=== PATIENT | male | born 1940 | race Caucasian/White ===

== ENCOUNTER 2019-03-30 16:56 | Inpatient (IN) | payer OTHER, BC ==
[2019-03-30 17:19] VITALS: BMI 24.4
--- NOTE | 2019-03-30 17:55 | PDOC ---
History of Present Illness - General Chief Complaint: Injury Stated Complaint: FALL Time Seen by Provider: 03/30/19 17:20 History Source: Patient, Spouse Exam Limitations: No Limitations - History of Present Illness Initial Comments: 03/30/19 18:14 PCP: Dr. Lee in [place] HPI: 78yo man with PMH Alzheimer disease, emphysema, PAD (s/p b/l surgeries), [place] (30 years), presenting s/p unwitnessed mechanical fall from standing 30 minutes [employer]. Pt was walking along the sidewalk and reports that he tripped over his shoes - something that has been occuring recently - and fell to the ground striking his head, and left shoulder. He reports that he remembers the fall and a passerby called 911 and he was brought to the ED. Pt told EMS that he felt / heard a clicking in his neck and was placed in a C-collar. He is on 81mg ASA nightly Denies aura or other preceding symptoms. No CP, SOB, palpitations, fevers, chills, dizziness, nausea, vomiting. All: Amoxicillin, potassium clavulanate Past History - Travel Traveled outside of the country in the last 30 days: No Close contact w/someone who was outside of country & ill: No - Past Medical History Allergies/Adverse Reactions: Allergies Allergy/AdvReac Type Severity Reaction Status Date / Time amoxicillin trihydrate Allergy Verified 03/30/19 20:46 [From Augmentin] potassium clavulanate Allergy Verified 03/30/19 20:46 [From Augmentin] Home Medications: Ambulatory Orders Aspirin 81 mg PO DAILY 03/30/19 Carvedilol [Coreg -] 3.125 mg PO BID 03/30/19 Losartan/Hydrochlorothiazide [Losartan-Hctz 50-12.5 mg Tab] 1 each PO DAILY Cancer: Yes ([place]) COPD: No HTN: Yes - Surgical History Cardiac Surgery: Yes (stent) - Suicide/Smoking/Psychosocial Hx Smoking Status: No Smoking History: Former smoker Have you smoked in the past 12 months: No Number of Cigarettes Smoked Daily: 0 Information on smoking cessation initiated: No Hx Alcohol Use: No Drug/Substance Use Hx: No Review of Systems - Review of Systems Able to Perform ROS?: Yes Is the patient limited Algerian proficient: No Constitutional: No: Symptoms Reported, Chills, Fever, Weakness HEENTM: No: Symptoms Reported Respiratory: No: Symptoms reported, Cough, Stridor, Wheezing Cardiac (ROS): No: Symptoms Reported, Chest Pain, Irregular Heart Rate, Lightheadedness, Palpitations, Syncope, Chest Tightness ABD/GI: No: Symptoms Reported Musculoskeletal: Yes: Symptoms Reported Integumentary: No: Symptoms Reported Neurological: No: Symptoms reported, Headache, Numbness, Tingling, Dizziness All Other Systems: Reviewed and Negative *Physical Exam - Vital Signs Last Vital Signs Temp Pulse Resp BP Pulse Ox 98.3 F 76 18 159/103 H 93 L 03/30/19 17:15 03/30/19 17:15 03/30/19 17:15 03/30/19 17:15 03/30/19 17:15 - Physical Exam Comments: 03/30/19 18:22 Vitals: reviewed Gen: elderly man, sitting up, in C-collar, bilateral knee excoriations CV: RRR, nl s1/s2, no murmurs appreciated Pulm: CTABL, normal WOB, symmetric chest expansion Abd: soft, nontender, nondistended Ext: warm and well perfused, no clubbing / cyanosis / edema Skin: bilateral excoriation on knees, less than 2 inches each, 15-20 ants on right knee Msk: TTP left wrist, left humorous, left shoulder, no gross deformity apparent ED Treatment Course - LABORATORY CBC & Chemistry Diagram: 04/01/19 05:47 04/01/19 05:47 Medical Decision Making - Medical Decision Making 03/30/19 18:27 78yo man with PMH Alzheimer disease, emphysema, PAD (s/p b/l surgeries), [place] (30 years), presenting s/p unwitnessed likely mechanical fall from standing 30 minutes [employer]. Imaging to r/o head bleed, fractures. Labs for r/o syncope in man with h/o [place], unwitnessed fall. - CBC, CMP, Cardiac Profile, T&S, PT/INR - EKG, CXR - Left wrist, humorous, shoulder, hip and pelvisn Xrays - NCHCT, C-spine - 1g acetaminophen IV for pain - Legs dressed with bacitracin 03/30/19 19:02 Pt signed out to Dr. Suarez *DC/Admit/Observation/Transfer Diagnosis at time of Disposition: Pre-syncope Left humeral fracture Qualifiers: Encounter type: initial encounter Humerus Location: proximal Fracture type: closed Fracture morphology: other fracture Fracture alignment: displaced Qualified Code(s): S42.292A - Other displaced fracture of upper end of left humerus, initial encounter for closed fracture - Discharge Dispostion Condition at time of disposition: Stable - Referrals - Patient Instructions - Post Discharge Activity
[2019-03-30] MEDS ORDERED: ACETAMINOPHEN 1000 MG/100 ML VIAL (NON FORMULARY) IVPB ONE (18:11)
[2019-03-30] MEDS ORDERED: DIPHTH,PERTUSS(ACELL),TET 0.5 ML DISP.SYRIN IM ONE ×2 (18:25→18:36)
[2019-03-30] MEDS ORDERED: BACITRACIN 15 GM TUBE TOPICAL OINTMENT TP ONE (18:33)
[2019-03-30] MEDS ORDERED: ACETAMINOPHEN INJECTION 100 ML IVPB ONE (18:36)
[2019-03-30] MEDS ORDERED: BACITRACIN 0.9 GM PACKET ONE (18:36)
[2019-03-30 18:41] LABS: BASO % 0.5 % (0-2.0); EOS % 2.3 % (0-4.5); HEMATOCRIT 38.4 % (35.4-49); HEMOGLOBIN 13.3 GM/dL (11.7-16.9); LYMPH % 8.3 % (8-40); MCH 30.2 pg (25.7-33.7); MCHC 34.6 g/dl (32.0-35.9); MEAN CELL VOLUME 87.2 fl (80-96); MEAN PLT VOLUME 7.9 fl (7.5-11.1); MONO % 7.7 % (3.8-10.2); NEUT % 81.2 % (42.8-82.8); PLATELET COUNT 137 K/MM3 (134-434); RBC 4.41 M/mm3 (4.00-5.60); RDW 12.7 % (11.9-15.9); WHITE BLOOD COUNT 5.9 K/mm3 (4.0-10.0)
[2019-03-30 18:53] LABS: INR 1.08 (0.83-1.09); PROTHROMBIN TIME (PATIENT) 12.8 SEC (9.7-13.0)
[2019-03-30 19:00] LABS: ALBUMIN 3.9 g/dl (3.4-5.0); BILIRUBIN,TOTAL 0.4 mg/dL (0.2-1); BLOOD UREA NITROGEN 19.6 mg/dL (7-18); CALCIUM 8.5 mg/dL (8.5-10.1); CREATININE 0.9 mg/dL (0.55-1.3); POTASSIUM 4.1 mmol/L (3.5-5.1); TOT PROT 7.1 g/dl (6.4-8.2)
--- NOTE | 2019-03-30 19:17 | PDOC ---
Documentation entered by Darron Valdez SCRIBE, acting as scribe for Lisa Barber MD. Lisa Barber MD: This documentation has been prepared by the José Miguel medrano Elijah, SCRIBE, under my direction and personally reviewed by me in its entirety. I confirm that the documentation accurately reflects all work, treatment, procedures, and medical decision making performed by me. Attending Attestation - Resident Resident Name: Titus Smith - ED Attending Attestation I have performed the following: I have examined & evaluated the patient, The case was reviewed & discussed with the resident, I agree w/resident's findings & plan - HPI HPI: 03/30/19 18:23 78 yo M with PMH of Alzheimers, Cancer (ND) and HTN who presents to the ED via EMS s/p unwitnessed fall. Patient reports that he was walking when his shoe got caught on the curb resulting in him falling, hitting both knees and left side of the body. At this time the patient reports having pain in his left arm. Allergies: Amoxicillin Trihydrate, Potassium Clavulanate PCP: - Physicial Exam PE: 03/30/19 19:13 awake alert head atraumatic , no cervical spine tenderness, lungs clear bilat heart rrr no mrg abd soft nt nd ext wwp. bilat knee abrasions hips/ knee/ ankle from nt. left shoulder pain with abduction to 90deg, elbow from. left wrist TTP , no snuff box tenderness. pain on flex/ ext. nuero speech clear, moves all four ext. - Medical Decision Making 03/30/19 19:15 78 yo male s/p fall unwitnessed, unclear event.e c/o left shoulder pain, wrist pain, bilat knee abrasions. brought in c collar. plan ct head cervical spine, cxr ekg, troponin. xray wrist, shoulder and pelvis / left hip. tetanus. will likely require observation for pain control and syncope. ct head/ cervical spine pending. xray pending. pt signed out to oncomint attenidng DR Young, awaiting test results
--- NOTE | 2019-03-30 19:32 | PDOC ---
*Physical Exam - Vital Signs Last Vital Signs Temp Pulse Resp BP Pulse Ox 98.3 F 76 18 159/103 H 93 L 03/30/19 17:15 03/30/19 17:15 03/30/19 17:15 03/30/19 17:15 03/30/19 17:15 - Physical Exam Comments: 03/30/19 19:48 Gen: elderly man, sitting up, in C-collar, anxious, bilateral knee excoriations CV: RRR, nl s1/s2, no murmurs appreciated Pulm: CTABL, normal WOB, symmetric chest expansion Abd: soft, nontender, nondistended Ext: warm and well perfused, no clubbing / cyanosis / edema Skin: bilateral excoriation on knees, less than 2 inches each, 15-20 ants on right knee Msk: TTP left wrist, left humorous, left shoulder, no gross deformity apparent ED Treatment Course - LABORATORY CBC & Chemistry Diagram: 03/30/19 18:20 03/30/19 18:20 - ADDITIONAL ORDERS Additional order review: Laboratory Results 03/30/19 03/30/19 03/30/19 18:20 18:20 18:20 PT with INR 12.80 INR 1.08 Sodium 138 Potassium 4.1 Chloride 101 Carbon Dioxide 32 Anion Gap 5 L BUN 19.6 H Creatinine 0.9 Est GFR (CKD-EPI)AfAm 94.48 Est GFR (CKD-EPI)NonAf 81.52 Random Glucose 104 Calcium 8.5 Total Bilirubin 0.4 AST 13 L ALT 18 Alkaline Phosphatase 55 Creatine Kinase 100 Troponin I < 0.02 Total Protein 7.1 Albumin 3.9 03/30/19 18:20 RBC 4.41 MCV 87.2 MCHC 34.6 RDW 12.7 MPV 7.9 Neutrophils % 81.2 Lymphocytes % 8.3 D Monocytes % 7.7 Eosinophils % 2.3 Basophils % 0.5 - Medications Given in the ED: ED Medications Discontinued Medications Generic Name Dose Route Start Last Admin Trade Name Freq PRN Reason Stop Dose Admin Acetaminophen 1,000 mg 03/30/19 18:11 03/30/19 18:38 Ofirmev Injection - IVPB 03/30/19 18:12 1,000 mg ONCE ONE Administration Bacitracin 1 applic 03/30/19 18:33 03/30/19 18:39 Bacitracin - TP 03/30/19 18:34 1 applic ONCE ONE Administration Diphtheria/Tetanus/Acell Pertussis 0.5 ml 03/30/19 18:25 03/30/19 18:38 Boostrix - IM 03/30/19 18:26 0.5 ml .ONCE ONE Administration Medical Decision Making - Medical Decision Making Dr. Smith - CBC, CMP, Cardiac Profile, T&S, PT/INR, EKG, CXR - Left wrist, humorous, shoulder, hip and pelvis XR, NCHCT, C-spine - tylenol for pain, no relief - Legs dressed with bacitracin 03/30/19 19:25 Repeat BP 150/130, given home 3.125 carvedilol Given morphine for pain. Minimal relief Labs normal, trop negative Head, C-spine CT no bleed, fx. Removed c-collar XR showed L proximal humeral fx. Delayed hip XR bc too agitated and refused to lay down Sahil Horowitz is a 78yo man with PMH Alzheimer disease, emphysema, PAD (s/p b/l surgeries), [place] (30 years), presenting s/p unwitnessed fall from standing 30 minutes [employer]. Head and C-spine CT cleared. Repeat BP 150/130, given home 3.125 carvedilol. Given tylenol and morphine for pain. Trop negative. XR showed L displaced humeral neck fx . Delayed hip XR bc agitated and refused to lay down Admitted for presyncope with h/o [place], Alzheimers, L humeral fx and displacement. *DC/Admit/Observation/Transfer Diagnosis at time of Disposition: Pre-syncope Left humeral fracture Qualifiers: Encounter type: initial encounter Humerus Location: proximal Fracture type: closed Fracture morphology: other fracture Fracture alignment: displaced Qualified Code(s): S42.292A - Other displaced fracture of upper end of left humerus, initial encounter for closed fracture - Discharge Dispostion Condition at time of disposition: Stable - Referrals - Patient Instructions - Post Discharge Activity
[2019-03-30] MEDS ORDERED: morphine CARPU-JECT 4 MG/1 ML DISP.SYRIN IVPUSH ONE (19:47)
[2019-03-30] MEDS ORDERED: CARVEDILOL 3.125 MG TABLET (FP) PO ONE (19:51)
[2019-03-30] MEDS ORDERED: CARVEDILOL 3.125 MG TABLET (FP) ONE (20:06)
[2019-03-30] MEDS ORDERED: morphine SULFATE 4 MG/ML VIAL ONE (20:06)
[2019-03-30 20:22] LABS: EPI CELLS 0.5 /HPF (0-5/HPF); HYALINE CASTS 2 /lpf (0-8); URINE APPEARANCE CLEAR; URINE BACTERIA 1.9 /hpf (NEGATIVE); URINE BILIRUBIN NEGATIVE (NEGATIVE); URINE COLOR YELLOW; URINE GLUCOSE (UA) NEGATIVE (NEGATIVE); URINE KETONE NEGATIVE (NEGATIVE); URINE LEUK ESTERASE NEGATIVE (NEGATIVE); URINE NITRITE NEGATIVE (NEGATIVE); URINE PROTEIN NEGATIVE (NEGATIVE); URINE RBC 20 /hpf (0-4); URINE WBC 0 /hpf (0-5)
[2019-03-30] MEDS ORDERED: KETOROLAC TROMETHAMINE 30 MG/1 ML VIAL IVPUSH ONE (21:32)
[2019-03-30] MEDS ORDERED: KETOROLAC TROMETHAMINE 30 MG/1 ML VIAL ONE (21:47)
--- NOTE | 2019-03-30 22:30 | HP ---
CHIEF COMPLAINT: unwitnessed fall PCP: Dr Borrego HISTORY OF PRESENT ILLNESS: 78M with pmh of Alzhemier's Dementia, HTN, COPD, [place](1991), stent(1996) BIBA after unwitnessed mechanical fall onto his left-side. No LOC. Pt states that he tripped over his shoes while having his daily walk outside. Strangers notified EMS. Has been having issues with his orthodotic shoes, which he has been seeing a poultry buyer. Initially, complaint of Left-sided body pain to Left wrist, Left arm, L hip, both knees. Pain improved after Ofirmev, morphine, toradol. Prior to episode of fall, denies ORTEGA/CP/palpitations/SOB. Has intermittent episodes of BLE swelling, no orthopnea. Previous episode of witnessed fall after tripping over a curb, one year prior. At baseline, ambulates w/o assistive device, achieves ADLs independently, has a COUNTER HOP for time night agitation due to somnambulance. No recent sick contacts. Normal PO intake. Retried Silk Sp[employer]. HPI supplemented by patient's at bedside. ER course was notable for: (1) pain PRN: ofirmev, ketorolac, morphine (2) CT head: neg (3) CT c-spine: neg (4) LUE XR: proximal humeral fx (5) noncompliant Hip XR due to refusal to lay flat Recent Travel: none PAST MEDICAL HISTORY: Alzhemier's Dementia, HTN, COPD, [place](1991), stent(1996) PAST SURGICAL HISTORY: cardiac stent Social History: Smoking: quit 30ys prior, smoked 30ys Alcohol: quit 30ys prior Drugs: denies Family History: heart disease Allergies amoxicillin trihydrate [From Augmentin] Allergy (Verified 03/30/19 20:46) potassium clavulanate [From Augmentin] Allergy (Verified 03/30/19 20:46) HOME MEDICATIONS: Home Medications Medication Instructions Recorded Aspirin 81 mg PO DAILY 03/30/19 Carvedilol [Coreg -] 3.125 mg PO BID 03/30/19 Losartan/Hydrochlorothiazide 1 each PO DAILY 03/30/19 [Losartan-Hctz 50-12.5 mg Tab] REVIEW OF SYSTEMS CONSTITUTIONAL: Absent: fever, chills, diaphoresis, generalized weakness, malaise, loss of appetite HEENT: Absent: rhinorrhea, visual changes CARDIOVASCULAR: intermittent peripheral edema Absent: chest pain, syncope, palpitations, irregular heart rate, lightheadedness RESPIRATORY: Absent: cough, shortness of breath, dyspnea with exertion, orthopnea, wheezing, hemoptysis GASTROINTESTINAL: chronic constipation Absent: abdominal pain, abdominal distension, nausea, vomiting, diarrhea, melena , hematochezia GENITOURINARY: Absent: dysuria, frequency, urgency, hesitancy, hematuria MUSCULOSKELETAL: Absent: myalgia, arthralgia, joint swelling, back pain, neck pain SKIN: Absent: rash, itching, pallor HEMATOLOGIC/IMMUNOLOGIC: Absent: easy bleeding, easy bruising, lymphadenopathy, frequent infections ENDOCRINE: Absent: unexplained weight gain, unexplained weight loss NEUROLOGIC: Absent: headache, focal weakness or paresthesias, dizziness, unsteady gait, seizure, mental status changes, bladder or bowel incontinence PHYSICAL EXAMINATION Vital Signs - 24 hr 03/30/19 03/30/19 17:15 19:20 Temperature 98.3 F 99.1 F Pulse Rate 76 Pulse Rate [ 84 Right Radial] Respiratory 18 18 Rate Blood Pressure 159/103 H Blood Pressure 160/115 H [Left Arm] O2 Sat by Pulse 93 L 96 Oximetry (%) GENERAL: A&Ox1 to name, in no acute distress. Somnolent HEAD: Normal with no signs of trauma. No temporal wasting. No scalp hematoma EYES: extraocular movements intact, sclera anicteric, conjunctiva clear. EARS, NOSE, THROAT: Ears normal, nares patent, oropharynx clear without exudates. Moist mucous membranes. NECK: Normal range of motion, supple without lymphadenopathy, JVD, or masses. C- spine w/o TTP of midline. No TTP of T-spine/L-spine; no step-offs noted. LUNGS: Breath sounds equal, clear to auscultation bilaterally. No wheezes, and no crackles. No accessory muscle use. HEART: Regular rate and rhythm, normal S1 and S2 without murmur, rub or gallop. ABDOMEN: Soft, nontender, not distended, no guarding, no rebound. HIP: nonTTP of ASIS or pubic symphysis, stable to pelvic rock while sitting MUSCULOSKELETAL: Normal range of motion at wrist joints, ankle joints, knee joints. LUE in nursing position. Muscle spasm of Left shoulder. Mild TTP of Left shoulder UPPER EXTREMITIES: 2+ pulses, warm, well-perfused. No cyanosis. No clubbing. No peripheral edema. Clavicles w/o gross deformities, no TTP. Normal passive ROM of wrists b/l to flex/extend/supin/pronat LOWER EXTREMITIES: 1+ pulses, warm, well-perfused. No calf tenderness. Mild nonpitting peripheral edema. Knees b/l with superficial abrasions, open wounds but no active bleed, TTP NEUROLOGICAL: Somonolent. Intermittently compliant with commands. 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 Normal dorsiflex/plantarflex of feet PSYCHIATRIC: Intermittently compliant w/ commands. Poor eye contact. SKIN: Warm, dry, normal turgor, no rashes or lesions noted, normal capillary refill. Laboratory Results - last 24 hr 03/30/19 03/30/19 03/30/19 18:20 18:20 18:20 WBC 5.9 RBC 4.41 Hgb 13.3 Hct 38.4 MCV 87.2 MCH 30.2 MCHC 34.6 RDW 12.7 Plt Count 137 MPV 7.9 Absolute Neuts (auto) 4.8 Neutrophils % 81.2 Lymphocytes % 8.3 D Monocytes % 7.7 Eosinophils % 2.3 Basophils % 0.5 Nucleated RBC % 0 PT with INR INR Sodium 138 Potassium 4.1 Chloride 101 Carbon Dioxide 32 Anion Gap 5 L BUN 19.6 H Creatinine 0.9 Est GFR (CKD-EPI)AfAm 94.48 Est GFR (CKD-EPI)NonAf 81.52 Random Glucose 104 Calcium 8.5 Total Bilirubin 0.4 AST 13 L ALT 18 Alkaline Phosphatase 55 Creatine Kinase 100 Troponin I < 0.02 Total Protein 7.1 Albumin 3.9 Urine Color Urine Appearance Urine pH Ur Specific [place] Urine Protein Urine Glucose (UA) Urine Ketones Urine Blood Urine Nitrite Urine Bilirubin Urine Urobilinogen Ur Leukocyte Esterase Urine WBC (Auto) Urine RBC (Auto) Urine Casts (Auto) U Epithel Cells (Auto) Urine Bacteria (Auto) Blood Type Antibody Screen 03/30/19 03/30/19 03/30/19 18:20 18:20 20:00 WBC RBC Hgb Hct MCV MCH MCHC RDW Plt Count MPV Absolute Neuts (auto) Neutrophils % Lymphocytes % Monocytes % Eosinophils % Basophils % Nucleated RBC % PT with INR 12.80 INR 1.08 Sodium Potassium Chloride Carbon Dioxide Anion Gap BUN Creatinine Est GFR (CKD-EPI)AfAm Est GFR (CKD-EPI)NonAf Random Glucose Calcium Total Bilirubin AST ALT Alkaline Phosphatase Creatine Kinase Troponin I Total Protein Albumin Urine Color Yellow Urine Appearance Clear Urine pH 7.0 Ur Specific [place] 1.022 Urine Protein Negative Urine Glucose (UA) Negative Urine Ketones Negative Urine Blood Trace Urine Nitrite Negative Urine Bilirubin Negative Urine Urobilinogen 1.0 Ur Leukocyte Esterase Negative Urine WBC (Auto) 0 Urine RBC (Auto) 20 Urine Casts (Auto) 2 U Epithel Cells (Auto) 0.5 Urine Bacteria (Auto) 1.9 Blood Type A NEGATIVE Antibody Screen Negative ASSESSMENT/PLAN: 78M with pmh of Alzhemier's Dementia, HTN, COPD, [place](1991), stent(1996) BIBA after unwitnessed mechanical fall onto his left-side, w/ questionable syncope sustaining proximal humeral fx of LUE # unwitnessed mechanical fall -- questionable syncope > CT H: neg for intracranial path > CT c-spine: neg for fx, degen disc disease - trend CK - fu echo - fall precautions # aspiration risk - NPO # unwitnessed mechanical fall -- MSK injury > XR Left shoulder, humerus, wrist -- no read but probable proximal humeral fx noted - arm sling for comfort - consider Ortho consult - pain: Ofirmev, consider opioids PRN NEURO #Azlheimer's Dementia # risk of - fu RPR and B12 - bundled care - consider eyemask + earplugs - consider 1:1 sitter -- pt has one employed RESPIR # COPD - no meds at baseline - consider inhalers PRN CARDIO # chronic HTN # h/o ACS - cw ASA, carvedilol GI # no active issues # risk of urinary incontinence > UA: neg - monitor I/Os - consider bladder scans PRN FEN - NPO - consider IVF DVT prophylaxis - [facility] Noel Mcclellan, DO PGY-1 Medicine, PM-Float [id number] 03/31/19 Visit type - Emergency Visit Emergency Visit: Yes ED Registration Date: 03/30/19 Care time: The patient presented to the Emergency Department on the above date and was hospitalized for further evaluation of their emergent condition. - New Patient This patient is new to me today: Yes Date on this admission: 07/26/19 - Critical Care Critical Care patient: No ATTENDING PHYSICIAN STATEMENT I saw and evaluated the patient. I reviewed the resident's note and discussed the case with the resident. I agree with the resident's findings and plan as documented. SUBJECTIVE: OBJECTIVE: ASSESSMENT AND PLAN:
--- NOTE | 2019-03-30 23:43 | PN ---
Teaching Attending Note Name of Resident: Noel Mcclellan ATTENDING PHYSICIAN STATEMENT I saw and evaluated the patient. I reviewed the resident's note and discussed the case with the resident. I agree with the resident's findings and plan as documented. Seen and examined; please see resident note for further historical information. Briefly, this is a 78 y/o male presenting with fall vs. presyncope presenting with L-humeral fx; he denies LOC and admits to trouble rising off the ground with +CK. Please see resident note for further historical information. Negative EKG for arrhythmias, poor historian. Initially elevated BP but returned to 110s with morphine and his PM Coreg and initial set of orthostatics taken by medicine team were negative. Monitoring on telemetry. No clear LOC. VS, labs, imaging reviewed NAD, AAO, resting in bed CN2-12 wnl, no fnd Normal mood, appropriate behavior, forgetful. RRR s1/2 NT ND +BS EKG reviewed CXR reviewed Echo, carotid dopplers pending Trauma series reviewed and discussed with ER; +humeral fracture. ASSESSMENT AND PLAN: Patient had unwitnessed mechanical fall vs. presyncope and is found to have a L- proximal humeral fracture; rest of trauma series still negative except the hips which have not been completed due to agitation. # Unwitnessed Fall vs. Presyncope -Given alzheimers will check echo and telemetry and dopplers; can check RPR and B12 as well # Left Proximal Humeral fracture # Alzheimer Dementia # Hx CAD (w/ hx remote [place]) -Hold ASA until clear with sgy # Uncontrolled HTN, improved -Continue home coreg, combo pill # Need for complete trauma workup (still pending hip XR)
[2019-03-30] MEDS ORDERED: HEPARIN NA (PORCINE) 5,000 UNITS/ML 1ML VIAL ONE (23:58)
[2019-03-31] MEDS: HEPARIN NA (PORCINE) 5,000 UNITS/ML 1ML VIAL SQ SCH ×3 (00:04→21:40)
[2019-03-31] MEDS ORDERED: oxyCODONE HCL 5 MG TABLET PO PRN ×2 (02:06→17:48)
[2019-03-31] MEDS ORDERED: HALOPERIDOL LACTATE 5 MG/ML IM ONE (04:26)
[2019-03-31 07:56] LABS: BASO % 0.2 % (0-2.0); HEMOGLOBIN 12.1 GM/dL (11.7-16.9); LYMPH % 4.6 % (8-40); MCH 30.4 pg (25.7-33.7); MCHC 35.6 g/dl (32.0-35.9); MEAN CELL VOLUME 85.5 fl (80-96); MEAN PLT VOLUME 8.2 fl (7.5-11.1); MONO % 5.5 % (3.8-10.2); NEUT % 89.7 % (42.8-82.8); PLATELET COUNT 136 K/MM3 (134-434); RBC 3.98 M/mm3 (4.00-5.60); RDW 12.7 % (11.9-15.9); WHITE BLOOD COUNT 10.7 K/mm3 (4.0-10.0)
[2019-03-31 08:16] LABS: ALBUMIN 3.5 g/dl (3.4-5.0); BILIRUBIN,TOTAL 0.8 mg/dL (0.2-1); BLOOD UREA NITROGEN 20.7 mg/dL (7-18); CALCIUM 8.3 mg/dL (8.5-10.1); CREATININE 0.9 mg/dL (0.55-1.3); MAGNESIUM 2.1 mg/dL (1.8-2.4); POTASSIUM 3.7 mmol/L (3.5-5.1); TOT PROT 6.3 g/dl (6.4-8.2)
[2019-03-31 08:17] LABS: INR 1.08 (0.83-1.09); PROTHROMBIN TIME (PATIENT) 12.7 SEC (9.7-13.0)
[2019-03-31 08:19] LABS: ACTIVATED PTT 27.5 SECONDS (25.2-36.5)
[2019-03-31] MEDS ORDERED: ENOXAPARIN NA (PORCINE) 40 MG/0.4 ML DISP.SYRIN SQ SCH (10:00)
[2019-03-31] MEDS ORDERED: ASPIRIN 81 MG CHEWABLE TABLETS PO SCH (10:00)
[2019-03-31] MEDS ORDERED: CARVEDILOL 3.125 MG TABLET (FP) PO SCH (11:00)
--- NOTE | 2019-03-31 11:50 | ECHO ---
Name: MUSTAPHA OSBORNE Exam:Adult Echocardiogram Study Date: 03/31/2019 10:41 AM Age: 78 yrs Reason For Study: SYNCOPE Height: 73 in Weight: 185 lb BSA: 2.1 m2 MMode/2D Measurements & Calculations IVSd: 1.00 cm Ao root diam: 4.0 cm LVIDd: 4.2 cm LVPWd: 1.5 cm EDV(Teich): 79.0 ml LVOT diam: 2.1 cm LVLd ap4: 7.5 cm SV(MOD-sp4): 31.0 ml EDV(MOD-sp4): 62.0 ml LVLs ap4: 6.8 cm ESV(MOD-sp4): 31.0 ml Doppler Measurements & Calculations MV E max shine: 92.8 cm/sec Ao V2 max: 118.2 cm/sec MV A max shine: 59.7 cm/sec Ao max P.6 mmHg MV E/A: 1.6 Ao V2 mean: 89.9 cm/sec MV dec time: 0.07 sec Ao mean P.6 mmHg Ao V2 VTI: 21.1 cm MARTY(I,D): 2.2 cm2 AI P1/2t: 468.0 msec MARTY(V,D): 2.3 cm2 AI max shine: 332.0 cm/sec LV V1 max P.3 mmHg AI max P.7 mmHg LV V1 mean P.3 mmHg AI dec slope: 207.8 cm/sec2 LV V1 max: 76.0 cm/sec LV V1 mean: 50.8 cm/sec LV V1 VTI: 13.2 cm SV(LVOT): 47.0 ml Lat Peak E' Shine: 9.4 cm/sec Lat E/e': 9.8 Left Ventricle Ejection Fraction = 40%. The transmitral spectral Doppler flow pattern is suggestive of impaired LV relaxation. There is basal posterolateral wall mild hypokinesis. There is proximal mid posteriolatera l wall mild hypokinesis. There is moderate to severe lateral wall hypokinesis. Anterior wall endocardium is not well seen. Mitral Valve The mitral valve is grossly normal. There is no mitral valve stenosis. There is trace mitral regurgit ation. Aortic Valve The aortic valve opens well. No hemodynamically significant valvular aortic stenosis. Mild aortic regurgitation. Great Vessels Moderately dilated ascending aorta. The maximal diameter ascending aorta is 4.5cm. Pericardium/Pleura There is no pericardial effusion. Interpretation Summary Moderately dilated ascending aorta. Ejection Fraction = 40%. There is basal posterolateral wall mild hypokinesis. There is proximal mid posteriolateral wall mild hypokinesis. There is moderate to severe lateral wall hypokinesis. The transmitral spectral Doppler flow pattern is suggestive of impaired LV relaxation. Mild aortic regurgitation. There is no pericardial effusion. MD Carreon *Pepe 03/31/2019 11:49 AM
[2019-03-31] MEDS: CARVEDILOL 3.125 MG TABLET (FP) PO SCH ×2 (12:00→21:40)
[2019-03-31] MEDS: LOSARTAN 50MG/HCTZ 12.5MG 1 TAB (FP) PO SCH (12:00)
[2019-03-31] MEDS: SENNOSIDES 8.6MG TABLET (FP) PO SCH ×2 (12:00→21:40)
--- NOTE | 2019-03-31 12:02 | EKG ---
Test Reason : Blood Pressure : / mmHG Vent. Rate : 079 BPM Atrial Rate : 079 BPM P-R Int : 206 ms QRS Dur : 116 ms QT Int : 390 ms P-R-T Axes : 016 -40 083 degrees QTc Int : 447 ms NORMAL SINUS RHYTHM WITH 1ST DEGREE A-V BLOCK LEFT AXIS DEVIATION NONSPECIFIC T WAVE ABNORMALITY ABNORMAL ECG NO PREVIOUS ECGS AVAILABLE Confirmed by ANDREA SARAVIA MD ([id number]) on 03/31/2019 12:01:43 PM Referred By: Confirmed By:ANDREA SARAVIA MD
[2019-03-31] MEDS: PNEUMOC 13-VAL CONJ-DIP CRM/PF 0.5 ML DISP.SYRIN IM ONE ×2 (12:05→12:11)
--- NOTE | 2019-03-31 16:16 | PN ---
Teaching Attending Note Name of Resident: Pedrito Arroyo ATTENDING PHYSICIAN STATEMENT I saw and evaluated the patient. I reviewed the resident's note and discussed the case with the resident. I agree with the resident's findings and plan as documented. SUBJECTIVE: has pain in L upper extremity . no pain in hips or other long bones. has no fever or chills. denies LOC. reports no AGUILAR or cp or SOB. he walks 1.5 mild every day with no need to stop. lifts light weighs at home.,No treadmill. he denies palpitations, SOB or CP . OBJECTIVE: NAD Cv: RRR, no MRG Lungs;CTAB Abd: soft, Nt, Nd , NL BS Ext: No edema or erythema on Le. L upper arm with edema, tendernes. RP 2+ . able to feel sensation and can move fingers. No edema or erythema on RUE. No TTP over b/l hips , thighs, or legs . abrasions on both knees ASSESSMENT AND PLAN: 78 y/o man with h/o dementia, CAD, s/p DC and stents, who presented with a fall 1- Mechanical fall. hip xrays neg for fracture.no tenderness on palpation . 2- RUE Fx: no neuro vascular compromise. seen by Sx and no plan for intervention. pain control 3- H/o CAD: stable. - cont aspirinand BB - echo reviewed. 4- HTN : cont meds 5- DVT PX : heparin sq dispo : PT eval.
--- NOTE | 2019-03-31 16:37 | PN ---
Physical Exam: SUBJECTIVE: Patient seen and examined by the bedside OBJECTIVE: Vital Signs Period Temp Pulse Resp BP Sys/Evans Pulse Ox Last 24 Hr 97.8 F-99.1 F 76-103 18-20 101-165/65-115 93-96 GENERAL: The patient is awake, alert, not oriented in time but oriented in place HEAD: Normal with no signs of trauma. EYES: PERRL, extraocular movements intact, sclera anicteric, conjunctiva clear. No ptosis. NECK: Trachea midline, full range of motion, supple. LUNGS: Breath sounds equal, clear to auscultation bilaterally, no wheezes, no crackles, no accessory muscle use. HEART: Regular rate and rhythm, S1, S2 without murmur, rub or gallop. ABDOMEN: Soft, nontender, nondistended, normoactive bowel sounds, no guarding, no rebound, no hepatosplenomegaly, no masses. EXTREMITIES: 2+ pulses, warm, well-perfused, no edema, ecchymoses on knees B/L NEUROLOGICAL: Normal speech, gait not observed. 5/5 motor strength in both hands. Tenderness over left arm and shoulder PSYCH: Normal mood, normal affect. SKIN: Warm, dry, normal turgor. Laboratory Results - last 24 hr 03/30/19 03/30/19 03/30/19 18:20 18:20 18:20 WBC 5.9 RBC 4.41 Hgb 13.3 Hct 38.4 MCV 87.2 MCH 30.2 MCHC 34.6 RDW 12.7 Plt Count 137 MPV 7.9 Absolute Neuts (auto) 4.8 Neutrophils % 81.2 Lymphocytes % 8.3 D Monocytes % 7.7 Eosinophils % 2.3 Basophils % 0.5 Nucleated RBC % 0 PT with INR INR PTT (Actin FS) Sodium 138 Potassium 4.1 Chloride 101 Carbon Dioxide 32 Anion Gap 5 L BUN 19.6 H Creatinine 0.9 Est GFR (CKD-EPI)AfAm 94.48 Est GFR (CKD-EPI)NonAf 81.52 Random Glucose 104 Calcium 8.5 Magnesium Total Bilirubin 0.4 AST 13 L ALT 18 Alkaline Phosphatase 55 Creatine Kinase 100 Troponin I < 0.02 Total Protein 7.1 Albumin 3.9 Vitamin B12 Urine Color Urine Appearance Urine pH Ur Specific Malcom Urine Protein Urine Glucose (UA) Urine Ketones Urine Blood Urine Nitrite Urine Bilirubin Urine Urobilinogen Ur Leukocyte Esterase Urine WBC (Auto) Urine RBC (Auto) Urine Casts (Auto) U Epithel Cells (Auto) Urine Bacteria (Auto) Blood Type Antibody Screen 03/30/19 03/30/19 03/30/19 18:20 18:20 20:00 WBC RBC Hgb Hct MCV MCH MCHC RDW Plt Count MPV Absolute Neuts (auto) Neutrophils % Lymphocytes % Monocytes % Eosinophils % Basophils % Nucleated RBC % PT with INR 12.80 INR 1.08 PTT (Actin FS) Sodium Potassium Chloride Carbon Dioxide Anion Gap BUN Creatinine Est GFR (CKD-EPI)AfAm Est GFR (CKD-EPI)NonAf Random Glucose Calcium Magnesium Total Bilirubin AST ALT Alkaline Phosphatase Creatine Kinase Troponin I Total Protein Albumin Vitamin B12 Urine Color Yellow Urine Appearance Clear Urine pH 7.0 Ur Specific Malcom 1.022 Urine Protein Negative Urine Glucose (UA) Negative Urine Ketones Negative Urine Blood Trace Urine Nitrite Negative Urine Bilirubin Negative Urine Urobilinogen 1.0 Ur Leukocyte Esterase Negative Urine WBC (Auto) 0 Urine RBC (Auto) 20 Urine Casts (Auto) 2 U Epithel Cells (Auto) 0.5 Urine Bacteria (Auto) 1.9 Blood Type A NEGATIVE Antibody Screen Negative 03/31/19 03/31/19 03/31/19 05:48 05:49 05:55 WBC 10.7 H RBC 3.98 L Hgb 12.1 Hct 34.0 L MCV 85.5 MCH 30.4 MCHC 35.6 RDW 12.7 Plt Count 136 MPV 8.2 Absolute Neuts (auto) 9.6 H Neutrophils % 89.7 H Lymphocytes % 4.6 L D Monocytes % 5.5 Eosinophils % 0.0 D Basophils % 0.2 Nucleated RBC % 0 PT with INR 12.70 INR 1.08 PTT (Actin FS) 27.5 Sodium 137 Potassium 3.7 Chloride 102 Carbon Dioxide 30 Anion Gap 6 L BUN 20.7 H Creatinine 0.9 Est GFR (CKD-EPI)AfAm 94.48 Est GFR (CKD-EPI)NonAf 81.52 Random Glucose 109 H Calcium 8.3 L Magnesium 2.1 Total Bilirubin 0.8 AST 11 L ALT 16 Alkaline Phosphatase 49 Creatine Kinase 89 Troponin I Total Protein 6.3 L Albumin 3.5 Vitamin B12 979 Urine Color Urine Appearance Urine pH Ur Specific Malcom Urine Protein Urine Glucose (UA) Urine Ketones Urine Blood Urine Nitrite Urine Bilirubin Urine Urobilinogen Ur Leukocyte Esterase Urine WBC (Auto) Urine RBC (Auto) Urine Casts (Auto) U Epithel Cells (Auto) Urine Bacteria (Auto) Blood Type Antibody Screen Active Medications Generic Name Dose Route Start Last Admin Trade Name Freq PRN Reason Stop Dose Admin Carvedilol 3.125 mg 03/31/19 10:00 03/31/19 12:00 Coreg - PO 3.125 mg BID REINALDO Administration HCTZ/Losartan Potassium 1 tab 03/31/19 11:00 03/31/19 12:00 Hyzaar - PO 1 tab DAILY REINALDO Administration Heparin Sodium (Porcine) 5,000 unit 03/30/19 23:45 03/31/19 12:10 Heparin - SQ Not Given BID REINALDO Oxycodone HCl 5 mg 03/31/19 02:06 03/31/19 15:57 Roxicodone - PO 5 mg Q6H PRN Administration PAIN LEVEL 4 - 6 Senna 1 tab 03/31/19 10:00 03/31/19 12:00 Senna - PO 1 tab BID REINALDO Administration ASSESSMENT/PLAN: 78 year old male with pmh of Alzhemier's, HTN, COPD, [place](1991), and stent placement(1996) presented to the ER after an unwitnessed fall onto his left- side with no reported LOC. # syncope workup - Echo: milkd hypokinesia in POst Lat wall, sever hypokinesia in Lat wall, impaired LGV relaxation - Surgey consulted, will not operate - CT head, spine no acute pathology - trend CK - fall precautions # fall injury workup - XR left proximal humerus fracture, xray wrist, hip normal - Ortho consult pending - Oxycodone, tylenol - Will monitor and consider D/C tomorrow #HTN - Coreg 3.125mg - Losartan/HCTZ # FEN - Regular diet resumed since no surgery planned # DVT prophylaxis - Heparin SQ resumed since no surgery planned Visit type - Emergency Visit Emergency Visit: Yes ED Registration Date: 03/30/19 Care time: The patient presented to the Emergency Department on the above date and was hospitalized for further evaluation of their emergent condition. - New Patient This patient is new to me today: Yes Date on this admission: 03/31/19 - Critical Care Critical Care patient: No - Discharge Referral Referred to [facility] Med P.C.: No ATTENDING PHYSICIAN STATEMENT I saw and evaluated the patient. I reviewed the resident's note and discussed the case with the resident. I agree with the resident's findings and plan as documented. SUBJECTIVE: OBJECTIVE: ASSESSMENT AND PLAN:
[2019-03-31] MEDS ORDERED: ACETAMINOPHEN 325 MG TABLET (FP) PO PRN (17:47)
[2019-04-01] MEDS: HEPARIN NA (PORCINE) 5,000 UNITS/ML 1ML VIAL SQ SCH ×3 (05:52→21:49)
[2019-04-01 06:56] LABS: HEMATOCRIT 36.6 % (35.4-49); HEMOGLOBIN 13.1 GM/dL (11.7-16.9); MCH 30.5 pg (25.7-33.7); MCHC 35.7 g/dl (32.0-35.9); MEAN CELL VOLUME 85.5 fl (80-96); PLATELET COUNT 129 K/MM3 (134-434); RBC 4.28 M/mm3 (4.00-5.60); RDW 12.5 % (11.9-15.9); WHITE BLOOD COUNT 9.4 K/mm3 (4.0-10.0)
[2019-04-01 07:08] LABS: BLOOD UREA NITROGEN 15.6 mg/dL (7-18); CALCIUM 8.4 mg/dL (8.5-10.1); CREATININE 0.8 mg/dL (0.55-1.3); POTASSIUM 3.4 mmol/L (3.5-5.1)
[2019-04-01] MEDS ORDERED: POTASSIUM CHLORIDE TABS 20 MEQ TABLET.ER (FP) PO ONE (07:38)
--- NOTE | 2019-04-01 09:06 | CON.ORTH ---
Consult Consult Specialty:: orthopedics Reason for Consultation:: shoulder injury - History of Present Illness History of Present Illness: 78y M called for consultation after mechanical fall pt somnolent at time of exam, hx per chart is mechanical fall on left present for exam PE AF VSS LUE in sling small swelling and bruising no apparent tenderness at elbow, wrist NV exam limited by patient MS but grossly intact, reacting to LT No apparent pain with rotation of both hips. XR: minimally displaced fracture L proximal humerus A: L proximal humerus fracture P: pt will heal well with conservative care in this alignment use sling minimize narcotics, can alternate NSAIDs/tylenol plan for follow up 2 weeks for xrays no gross hip pathology seen on xray, recommend allow pt to wbat tomorrow, please reconsult if patient has ambulatory difficulty, can consider additional workup - History Source History Provided By: Family Member, Medical Record Limitations to Obtaining History: Dementia - Past Medical History Cardio/Vascular: Yes: HTN, [place] - Alcohol/Substance Use Hx Alcohol Use: No - Smoking History Smoking history: Former smoker Have you smoked in the past 12 months: No Aproximately how many cigarettes per day: 0 Home Medications - Allergies Allergies/Adverse Reactions: Allergies Allergy/AdvReac Type Severity Reaction Status Date / Time amoxicillin trihydrate Allergy Verified 03/30/19 20:46 [From Augmentin] potassium clavulanate Allergy Verified 03/30/19 20:46 [From Augmentin] - Home Medications Home Medications: Ambulatory Orders Aspirin 81 mg PO DAILY 03/30/19 Carvedilol [Coreg -] 3.125 mg PO BID 03/30/19 Losartan/Hydrochlorothiazide [Losartan-Hctz 50-12.5 mg Tab] 1 each PO DAILY Physical Exam for Ortho Vital Signs: Vital Signs Temperature 98.6 F 04/01/19 06:00 Pulse Rate 71 04/01/19 06:00 Respiratory Rate 20 04/01/19 06:00 Blood Pressure 155/94 04/01/19 06:00 O2 Sat by Pulse Oximetry (%) 95 04/01/19 03:00 Labs: CBC, BMP 04/01/19 05:47 04/01/19 05:47 INR, PTT INR 1.08 (0.83-1.09) 03/31/19 05:49
[2019-04-01] MEDS: LOSARTAN 50MG/HCTZ 12.5MG 1 TAB (FP) PO SCH (09:11)
[2019-04-01] MEDS: CARVEDILOL 3.125 MG TABLET (FP) PO SCH ×2 (09:11→21:49)
[2019-04-01] MEDS: SENNOSIDES 8.6MG TABLET (FP) PO SCH ×2 (09:11→21:49)
--- NOTE | 2019-04-01 13:57 | PN ---
Teaching Attending Note Name of Resident: Kylee Ye ATTENDING PHYSICIAN STATEMENT I saw and evaluated the patient. I reviewed the resident's note and discussed the case with the resident. I agree with the resident's findings and plan as documented. SUBJECTIVE: No fever or chills. no Sung. pain is better controlled. was slightly confused over night per OBJECTIVE: NAD Cv: RRR, no MRG Lungs;CTAB Abd: soft, Nt, Nd , NL BS Ext: No edema or erythema on LE. L upper arm with less edema and tenderness. RP 2+ . . No edema or erythema on RUE. No TTP over b/l hips , thighs, or legs . dry abrasions on both knees ASSESSMENT AND PLAN: 78 y/o man with h/o dementia, CAD, s/p [place] and stents, who presented with a fall 1- Mechanical fall. need PT , but prefers out pt rehab. she was advised to remove all rugs and change his shoes 2- RUE Fx: no neuro vascular compromise. pain control with ibuprofen and tylenol after dc sling at all times f/u with ortho for repeat xray 3- H/o CAD: stable. - cont aspirin and BB - f/u with his own geodetic computator. d/dw 4- HTN : cont meds Dc home. Cm made aware to arrange services. declines rehab
--- NOTE | 2019-04-01 14:39 | DS ---
Physical Exam: SUBJECTIVE: Patient seen and examined OBJECTIVE: Vital Signs Period Temp Pulse Resp BP Sys/Evans Pulse Ox Last 24 Hr 97.7 F-98.8 F 71-84 18-20 143-181/86-118 94-95 PHYSICAL EXAM GENERAL: The patient is awake, alert, and fully oriented, in no acute distress. HEAD: Normal with no signs of trauma. EYES: PERRL, extraocular movements intact, sclera anicteric, conjunctiva clear. ENT: Ears normal, nares patent, oropharynx clear without exudates, moist mucous membranes. NECK: Trachea midline, full range of motion, supple. LUNGS: Breath sounds equal, clear to auscultation bilaterally, no wheezes, no crackles, no accessory muscle use. HEART: Regular rate and rhythm, S1, S2 without murmur, rub or gallop. ABDOMEN: Soft, nontender, nondistended, normoactive bowel sounds, no guarding, no rebound, no hepatosplenomegaly, no masses. EXTREMITIES: 2+ pulses, warm, well-perfused, no edema. NEUROLOGICAL: Cranial nerves II through XII grossly intact. Normal speech, gait not observed. PSYCH: Normal mood, normal affect. SKIN: Warm, dry, normal turgor, no rashes or lesions noted. LABS Laboratory Results - last 24 hr 03/31/19 04/01/19 04/01/19 02:14 05:47 05:47 WBC 9.4 RBC 4.28 Hgb 13.1 Hct 36.6 MCV 85.5 MCH 30.5 MCHC 35.7 RDW 12.5 Plt Count 129 L MPV 8.0 Sodium 137 Potassium 3.4 L Chloride 100 Carbon Dioxide 31 Anion Gap 6 L BUN 15.6 Creatinine 0.8 Est GFR (CKD-EPI)AfAm 99.17 Est GFR (CKD-EPI)NonAf 85.56 Random Glucose 96 Calcium 8.4 L RPR Titer Nonreactive HOSPITAL COURSE: Date of Admission:03/30/19 78 year old male with pmh of Alzhemier's, HTN, COPD, [place](1991), and stent placement(1996) presented to the ER after an unwitnessed fall onto his left- side with no reported LOC. Found to have left proximal humeral fracture on Xray. Date of Discharge: 04/01/19 Given tylenol, oxycodone for pain management. CT head, spine showed no acute pathology. Echo showed milkd hypokinesia in Post Lat wall, sever hypokinesia in Lat wall, impaired LGV relaxation, referred to his wide area network systems administrator for f/o. Consulted ortho, decided not to operate Rehab recommended but wants this outpatient. Discharge Summary Reason For Visit: SYNCOPE Current Active Problems Fall (Acute) Left humeral fracture (Acute) Condition: Improved - Instructions Diet, Activity, Other Instructions: You were admitted to the hospital because of a fall. While you were here, we performed a scan of your left arm (X Ray), which showed a fracture. You were evaluated by our orthopedic surgeon, who did not advise surgery.We also performed scans of your head and spine (CT), and hips (X ray). These scans did not show any abnormalities. We also performed a scan of your heart (Echo), and while we did not see anything requiring immediate concern, we would like you to follow up with your wide area network systems administrator ( better ) While you were admitted, we gave you fluids, and medicine to manage your pain. Medications: - Please resume ALL of your home meds. - Please take Ibuprofen 200mg every 8 hours every other day for a total of one week. - Please take Tylenol 650 mg every 8 hours every other day for a total of one week. Follow up: Please make the following appointments within one week: - With your PCP, Dr. Lee - Follow up with the Orthopedic surgeon, Dr. Farnsworth, in two weeks to monitor your arm and if there is anything further to do. you need an xray then Additional Information: Please return to the Emergency Department if you have any of the following: Loss of consciousness, nausea, dizziness, vomiting, shortness of breath, diarrhea, bleeding that will not stop, or persistent headache. sling to left upper extremity at all times Referrals: Digna Lee [Non Staff, Medical] - 1 Week Timo Farnsworth MD [Staff Physician] - 2 Weeks Petty Borrego [Non Staff, Medical] - 1 Week Disposition: VNS/HOME HEALTH CARE - Home Medications Comprehensive Discharge Medication List: Ambulatory Orders Aspirin 81 mg PO DAILY 03/30/19 Carvedilol [Coreg -] 3.125 mg PO BID 03/30/19 Losartan/Hydrochlorothiazide [Losartan-Hctz 50-12.5 mg Tab] 1 each PO DAILY Acetaminophen [Tylenol] 650 mg PO Q8H PRN #24 capsule 04/01/19 Ibuprofen 200 mg PO Q8H PRN #12 capsule 04/01/19 - Discharge Referral Referred to [facility] Med P.C.: No ATTENDING PHYSICIAN STATEMENT I saw and evaluated the patient. I reviewed the resident's note and discussed the case with the resident. I agree with the resident's findings and plan as documented. SUBJECTIVE: OBJECTIVE: ASSESSMENT AND PLAN:
[2019-04-02] MEDS: HEPARIN NA (PORCINE) 5,000 UNITS/ML 1ML VIAL SQ SCH ×3 (06:12→21:36)
[2019-04-02 07:13] LABS: BLOOD UREA NITROGEN 17.6 mg/dL (7-18); CALCIUM 8.5 mg/dL (8.5-10.1); CREATININE 0.8 mg/dL (0.55-1.3)
[2019-04-02 07:24] LABS: POTASSIUM 4.2 mmol/L (3.5-5.1)
[2019-04-02] MEDS: CARVEDILOL 3.125 MG TABLET (FP) PO SCH ×2 (09:56→21:36)
[2019-04-02] MEDS: LOSARTAN 50MG/HCTZ 12.5MG 1 TAB (FP) PO SCH ×2 (09:57→12:20)
[2019-04-02] MEDS: SENNOSIDES 8.6MG TABLET (FP) PO SCH ×2 (09:57→21:37)
--- NOTE | 2019-04-02 14:12 | PN ---
Progress Note (short form) - Note Progress Note: Subjective: sees rain on the wall and double vision, he knows it is not real. . this is chronic for years per him and family. his out pt neurologist is aware and had tested him for it . abhi romero Objective: Vital Signs: Last Vital Signs Temp Pulse Resp BP Pulse Ox 98.3 F 86 20 106/70 93 L 04/02/19 09:58 04/02/19 09:58 04/02/19 09:58 04/02/19 09:58 04/02/19 11:00 Laboratory Results - last 24 hr 04/02/19 05:29 Sodium 139 Potassium 4.2 Chloride 102 Carbon Dioxide 32 Anion Gap 6 L BUN 17.6 Creatinine 0.8 Est GFR (CKD-EPI)AfAm 99.17 Est GFR (CKD-EPI)NonAf 85.56 Random Glucose 110 H Calcium 8.5 Physical Exam: NAD Cv: RRR, no MRG Lungs;CTAB Abd: soft, Nt, Nd , NL BS Ext: No edema or erythema on LE. L upper arm with less edema and tenderness. RP 2+ . . No edema or erythema on RUE. No TTP over b/l hips , thighs, or legs . dry abrasions on both knees neuro : EOMI, no facia ldroop, tongue at mid line. strength 5/5 in upper and lower extremities proximally and distally except for the L UE . ASSESSMENT AND PLAN: 78 y/o man with h/o dementia, CAD, s/p [place] and stents, who presented with a fall 1- Mechanical fall. need rehab 2- RUE Fx: no neuro vascular compromise. pain control with ibuprofen and tylenol sling at all times f/u with ortho for repeat xray 3- H/o CAD: stable. - cont aspirin and BB - f/u with his own lap maker. 4- HTN : cont meds change her mind and wants rehab . sw on it Visit type - Emergency Visit Emergency Visit: Yes ED Registration Date: 03/30/19 Care time: The patient presented to the Emergency Department on the above date and was hospitalized for further evaluation of their emergent condition. - New Patient This patient is new to me today: No - Critical Care Critical Care patient: No
[2019-04-02] MEDS ORDERED: LOSARTAN POTASSIUM 25 MG TABLET PO SCH (14:15)
[2019-04-02] MEDS ORDERED: HYDROCHLOROTHIAZIDE 12.5 MG CAPSULE (FP) PO SCH (14:15)
[2019-04-02] MEDS ORDERED: oxyCODONE HCL 5 MG TABLET PO PRN (15:24)
[2019-04-02] MEDS ORDERED: ACETAMINOPHEN 325 MG TABLET (FP) PO PRN (15:24)
[2019-04-03] MEDS: HEPARIN NA (PORCINE) 5,000 UNITS/ML 1ML VIAL SQ SCH ×3 (06:04→21:23)
[2019-04-03] MEDS ORDERED: LOSARTAN POTASSIUM 25 MG TABLET PO SCH (10:00)
[2019-04-03] MEDS ORDERED: HYDROCHLOROTHIAZIDE 12.5 MG CAPSULE (FP) PO SCH (10:00)
[2019-04-03] MEDS: CARVEDILOL 3.125 MG TABLET (FP) PO SCH ×2 (10:40→21:23)
[2019-04-03] MEDS: SENNOSIDES 8.6MG TABLET (FP) PO SCH ×2 (10:40→21:23)
[2019-04-03] MEDS ORDERED: DOCUSATE SODIUM 100 MG CAPSULE (FP) PO PRN (14:17)
--- NOTE | 2019-04-03 14:19 | PN ---
Teaching Attending Note Name of Resident: Pedrito Arroyo ATTENDING PHYSICIAN STATEMENT I saw and evaluated the patient. I reviewed the resident's note and discussed the case with the resident. I agree with the resident's findings and plan as documented. SUBJECTIVE: No fever or chills. No pain ths am , only when he moves. constipated OBJECTIVE: NAD Cv: RRR, no MRG Lungs; CTAB Abd: soft, NT, Nd, NL BS Ext: No edema or erythema on LE. L upper arm with less edema and tenderness. RP 2+ . . No edema or erythema on RUE. abrasions on knees ASSESSMENT AND PLAN: 78 y/o man with h/o dementia, CAD, s/p [place] and stents, who presented with a fall 1- Mechanical fall. need rehab 2- RUE Fx: no neuro vascular compromise. dc oxy . cont tylenol sling at all times f/u with ortho for repeat xray 3- H/o CAD: stable. - cont aspirin and BB - f/u with his own trader. 4- HTN : cont meds 5- visual hallucinations and diplopia: chronic . addressed by his neurologist. cont to follow with his neuro Rehab placement pending d/w and SW
[2019-04-03] MEDS ORDERED: DOCUSATE SODIUM 100 MG CAPSULE (FP) PO ONE (14:30)
--- NOTE | 2019-04-03 18:38 | PN ---
Physical Exam: SUBJECTIVE: Patient seen and examined by the bedside. OBJECTIVE: Vital Signs Period Temp Pulse Resp BP Sys/Evans Pulse Ox Last 24 Hr 96.2 F-98.6 F 82-89 17-18 94-130/54-90 92-95 GENERAL: The patient is awake, AOx1 HEAD: Normal with no signs of trauma. EYES: PERRL, extraocular movements intact, sclera anicteric, conjunctiva clear. No ptosis. ENT: Ears normal, nares patent, oropharynx clear without exudates, moist mucous membranes. NECK: Trachea midline, full range of motion, supple. LUNGS: Breath sounds equal, clear to auscultation bilaterally, no wheezes, no crackles, no accessory muscle use. HEART: Regular rate and rhythm, S1, S2 without murmur, rub or gallop. ABDOMEN: Soft, nontender, nondistended, normoactive bowel sounds, no guarding, no rebound, no hepatosplenomegaly, no masses. EXTREMITIES: 2+ pulses, warm, well-perfused, no edema, R arm in sling NEUROLOGICAL: Cranial nerves II through XII grossly intact. Normal speech, gait not observed. PSYCH: Normal mood, normal affect. SKIN: Warm, dry, normal turgor, no rashes or lesions noted Active Medications Generic Name Dose Route Start Last Admin Trade Name Freq PRN Reason Stop Dose Admin Acetaminophen 650 mg 04/02/19 15:24 04/02/19 21:37 Tylenol - PO 650 mg Q6H PRN Administration PAIN LEVEL 1-5 Carvedilol 3.125 mg 04/02/19 22:00 04/03/19 10:40 Coreg - PO 3.125 mg BID REINALDO Administration Docusate Sodium 100 mg 04/03/19 14:17 Colace - PO BID PRN CONSTIPATION HCTZ/Losartan Potassium 1 tab 04/04/19 10:00 Hyzaar - PO DAILY REINALDO Heparin Sodium (Porcine) 5,000 unit 04/02/19 22:00 04/03/19 13:46 Heparin - SQ 5,000 unit TID REINALDO Administration Senna 1 tab 04/02/19 22:00 04/03/19 10:40 Senna - PO 1 tab BID REINALDO Administration ASSESSMENT/PLAN: 78 year old male with pmh of Alzhemier's, HTN, COPD, [place](1991), and stent placement(1996) presented to the ER after an unwitnessed fall onto his left- side with no reported LOC. # syncope workup - Echo: milkd hypokinesia in Post Lat wall, sever hypokinesia in Lat wall, impaired LGV relaxation - Surgey consulted, will not operate - CT head, spine no acute pathology - fall precautions # fall injury workup - XR left proximal humerus fracture, xray wrist, hip normal - Ortho: No need to operate - Completing rehab requirement of 3 days admission, plan to DC tomorrow #HTN - Coreg 3.125mg - [id number] # FEN - Regular diet # DVT PE - Heparin SQ Visit type - Emergency Visit Emergency Visit: Yes ED Registration Date: 04/01/19 Care time: The patient presented to the Emergency Department on the above date and was hospitalized for further evaluation of their emergent condition. - New Patient This patient is new to me today: No - Critical Care Critical Care patient: No - Discharge Referral Referred to [facility] Med P.C.: No ATTENDING PHYSICIAN STATEMENT I saw and evaluated the patient. I reviewed the resident's note and discussed the case with the resident. I agree with the resident's findings and plan as documented. SUBJECTIVE: OBJECTIVE: ASSESSMENT AND PLAN:
[2019-04-04] MEDS: HEPARIN NA (PORCINE) 5,000 UNITS/ML 1ML VIAL SQ SCH (05:10)
[2019-04-04] MEDS: SENNOSIDES 8.6MG TABLET (FP) PO SCH (09:13)
[2019-04-04] MEDS: CARVEDILOL 3.125 MG TABLET (FP) PO SCH (09:13)
[2019-04-04] MEDS ORDERED: LOSARTAN 50MG/HCTZ 12.5MG 1 TAB (FP) PO SCH (10:00)
--- NOTE | 2019-04-04 11:25 | DS ---
Physical Exam: SUBJECTIVE: Patient seen and examined OBJECTIVE: Vital Signs Period Temp Pulse Resp BP Sys/Evans Pulse Ox Last 24 Hr 98 F-99.3 F 81-92 16-19 98-143/54-74 92-93 PHYSICAL EXAM GENERAL: The patient is awake, alert, and fully oriented, in no acute distress. HEAD: Normal with no signs of trauma. EYES: PERRL, extraocular movements intact, sclera anicteric, conjunctiva clear. ENT: Ears normal, nares patent, oropharynx clear without exudates, moist mucous membranes. NECK: Trachea midline, full range of motion, supple. LUNGS: Breath sounds equal, clear to auscultation bilaterally, no wheezes, no crackles, no accessory muscle use. HEART: Regular rate and rhythm, S1, S2 without murmur, rub or gallop. ABDOMEN: Soft, nontender, nondistended, normoactive bowel sounds, no guarding, no rebound, no hepatosplenomegaly, no masses. EXTREMITIES: 2+ pulses, warm, well-perfused, no edema. NEUROLOGICAL: Cranial nerves II through XII grossly intact. Normal speech, gait not observed. PSYCH: Normal mood, normal affect. SKIN: Warm, dry, normal turgor, no rashes or lesions noted. LABS HOSPITAL COURSE: Date of Admission:04/01/19 Date of Discharge: 04/04/19 Discharge Summary Reason For Visit: SYNCOPE Current Active Problems Fall (Acute) Left humeral fracture (Acute) Condition: Improved - Instructions Diet, Activity, Other Instructions: You were admitted to the hospital because of a fall. While you were here, we performed a scan of your left arm (X Ray), which showed a fracture. You were evaluated by our orthopedic surgeon, who did not advise surgery.We also performed scans of your head and spine (CT), and hips (X ray). These scans did not show any abnormalities. We also performed a scan of your heart (Echo), and while we did not see anything requiring immediate concern, we would like you to follow up with your impregnator and drier ( better ) While you were admitted, we gave you IV fluids, and medicine to manage your pain. Medications: - Please resume ALL of your home meds. - Please take Ibuprofen 200mg every 8 hours every other day for a total of one week. - Please take Tylenol 650 mg every 8 hours every other day for a total of one week. - Please START taking Losartan 25 mg. You will need to have your blood pressure monitored for any further medication adjustments. Follow up: Please make the following appointments within one week: - With your PCP, Dr. Lee - Follow up with the Orthopedic surgeon, Dr. Farnsworth, in two weeks to monitor your arm and if there is anything further to do. you need an xray then Additional Information: Please use your sling to left upper extremity at all times Please return to the Emergency Department if you have any of the following: Loss of consciousness, nausea, dizziness, vomiting, shortness of breath, diarrhea, bleeding that will not stop, or persistent headache. Referrals: Digna Lee [Non Staff, Medical] - 1 Week Timo Farnsworth MD [Staff Physician] - 2 Weeks Petty Borrego [Non Staff, Medical] - 1 Week - Home Medications Comprehensive Discharge Medication List: Ambulatory Orders Aspirin 81 mg PO DAILY 03/30/19 Carvedilol [Coreg -] 3.125 mg PO BID 03/30/19 Acetaminophen [Tylenol] 650 mg PO Q8H PRN #24 capsule 04/01/19 Ibuprofen 200 mg PO Q8H PRN #12 capsule 04/01/19 Losartan Potassium 25 mg PO DAILY #30 tablet 04/04/19 - Discharge Referral Referred to [facility] Med P.C.: No ATTENDING PHYSICIAN STATEMENT I saw and evaluated the patient. I reviewed the resident's note and discussed the case with the resident. I agree with the resident's findings and plan as documented. SUBJECTIVE: OBJECTIVE: ASSESSMENT AND PLAN:
[2019-04-04 12:01] VITALS: BP 130/82; PULSE 84; TEMP 98.8
--- NOTE | 2019-04-04 17:59 | PN ---
Teaching Attending Note Name of Resident: Pedrito Arroyo ATTENDING PHYSICIAN STATEMENT I saw and evaluated the patient. I reviewed the resident's note and discussed the case with the resident. I agree with the resident's findings and plan as documented. SUBJECTIVE: No fever or chills. no pain. per , he is much better OBJECTIVE: NAD Cv: RRR, no MRG Lungs; CTAB Ext: No edema or erythema on LE. L upper arm in a sling. RP 2+ . ASSESSMENT AND PLAN: 78 y/o man with h/o dementia, CAD, s/p MN and stents, who presented with a fall 1- Mechanical fall. need rehab 2- RUE Fx: no neuro vascular compromise. sling at all times f/u with ortho for repeat xray 3- H/o CAD: stable. - cont aspirin and BB - f/u with his own financial analysis manager. 4- HTN : thinks his HCTZ is too much for him . at home he takes 1/2 a tab of losartan/HCTZ 50/12.5. will dc HCTZ per request wit a close monitoring of his bP 5- visual hallucinations and diplopia: chronic. addressed by his neurologist. cont to follow with his neuro Rehab placement today d/w
== END 2019-04-04 12:48 | DRG 563 ==
LOC: JER 16:56 → JERBED 22:44 → J4W 03-31 01:52 → OBSVTOIN 04-01 10:56 → J6S 04-02 15:06
PROVIDERS: ADMIT Internal Medicine; ATTEND Internal Medicine
DX: S42.292A Other displaced fracture of upper end of left humerus, initial encounter for closed fracture (principal); J43.9 Emphysema, unspecified; S80.212A Abrasion, left knee, initial encounter; S80.211A Abrasion, right knee, initial encounter; I10 Essential (primary) hypertension; I25.10 Atherosclerotic heart disease of native coronary artery without angina pectoris; G30.9 Alzheimer's disease, unspecified; F02.80 Dementia in other diseases classified elsewhere, unspecified severity, without behavioral disturbance, psychotic disturbance, mood disturbance, and anxiety; W01.0XXA Fall on same level from slipping, tripping and stumbling without subsequent striking against object, initial encounter; Y93.01 Activity, walking, marching and hiking; Y92.480 Sidewalk as the place of occurrence of the external cause; Y99.8 Other external cause status; Z87.891 Personal history of nicotine dependence; Z86.59 Personal history of other mental and behavioral disorders; R44.1 Visual hallucinations; H53.2 Diplopia; I25.2 Old myocardial infarction; I73.9 Peripheral vascular disease, unspecified; Z95.5 Presence of coronary angioplasty implant and graft; Z91.14 Patient's other noncompliance with medication regimen; K59.00 Constipation, unspecified
CPT/HCPCS: 36415; 70450-TC; 71046-TC-FY; 72125-TC; 73030-TC-LT-FY; 73060-TC-LT-FY; 73110-TC-LT-FY; 73502-TC-LT-FY; 73523-TC-FY; 80048; 80053; 81003; 82550; 82607; 83735; 84484; 85025; 85027; 85610; 85730; 86593; 86850; 86900; 86901; 90670; 90715; 93005; 93010; 93306-TC; 97116-GP; 99284-25; G0378; J0131; J1644